=== PATIENT | male | born 1935 | race American Indian/Alaskan Native ===

== ENCOUNTER 2019-06-03 21:18 | Inpatient (IN) | payer MEDICARE, OTHER ==
[~2019-06-03] VITALS: Ht 165.1 cm; Wt 68.0 kg
--- NOTE | 2019-06-03 21:34 | NUR ---
PT BIB [facility] FROM HOME. PT PLACED ON BED AND MONITOR PLACED. PER MEDIC, FAMILY NOTED INCREASED GENERALIZED WEAKNESS WITH SOB X 2 DAYS. MEDIC STATED PT HAD RECENT HX OF PNA WITH HOSPITALIZATION. PT NOTED WITH LABORED BREATHING WITH SHAINA WHEEZING. PT ON 10L O2 BY MASK BY [facility] WITH O2 SAT AT 100%. PER MEDIC, UPON ARRIVAL TO SCENE PT'S O2 SAT WAS IN HIGH 80'S ON RA. PT ABLE TO SPEAK SLOWLY WITH SHORT SENTENCES. PT NOTED WITH TRACE EDEMA TO SHAINA FEET. FAMILY AT BEDSIDE.
[2019-06-03 22:17] LABS: RED CELL DISTRIBUTION WIDTH 12.8 % (11.5-14.5)
[2019-06-03 22:18] LABS: BASOPHIL % 0 % (0-2); PLATELET COUNT 97 x10^3mcL (130-400)
--- NOTE | 2019-06-03 22:35 | NUR ---
PT NOTED TO BE MORE AGITATED WITH ELEVATED BLOOD PRESSURE. PT REASSURED BY SON AT BEDSIDE, REPOSITIONED FOR COMFORT AND PLACED ON BIPAP PER DR KENNEDY.
[2019-06-03 22:51] LABS: CALCIUM 8.5 mg/dL (8.5-10.1); CARBON DIOXIDE 27.6 mmol/L (21-32); CHLORIDE SERUM 96 mmol/L (98-107); GLUCOSE SERUM 225 mg/dL (74-106); SODIUM SERUM 133 mmol/L (136-145)
[2019-06-03 22:55] LABS: ALKALINE PHOSPHATASE 85 U/L (46-116); ALT/SGPT 32 U/L (16-63); AST/SGOT 25 U/L (15-37); BILIRUBIN TOTAL 0.8 mg/dL (0.20-1.00); TOTAL PROTEIN, SERUM 7.3 g/dL (6.4-8.2)
[2019-06-03 23:00] LABS: ALBUMIN 2.7 g/dL (3.4-5.0)
--- NOTE | 2019-06-03 23:20 | NUR ---
F/C PLACED PER DR KENNEDY DUE TO PT INCONTINENCE AND THAT PT GIVEN IV LASIX.
[2019-06-03 23:52] LABS: UA SPECIFIC GRAVITY 1.025 (1.005-1.035); microscopic required? YES; urine erythrocyte 2+ (NEGATIVE)
[2019-06-04] VITALS (15 sets, daily range): BP systolic 95–115; BP diastolic 58–89
--- NOTE | 2019-06-04 00:38 | NUR ---
REPORT GIVEN TO JENIFER GA.
--- NOTE | 2019-06-04 00:38 | NUR ---
RECEIVED REPORT FROM CHARU GA FROM ED. AWAITING PT TRANSFER TO ICU.
--- NOTE | 2019-06-04 01:00 | NUR ---
PT BROUGHT INTO ICU VIA GURNEY, TRANSFERED TO ICU BED AND HOOKED UP TO HEATING AND COOLING TECHNICIAN AND CONTINUOUS PULSE OX. VS ON ADMISSION: T98.5, HR 89, B/P 111/58(75), RR 34, O2SAT 97%. PT IS AAOX4, HX OF DEMENTIA. PT ABLE TO MAKE NEEDS KNOWN AND FOLLOW COMMANDS. PUPILS 2MM BRISK. PT IS TACHYPNEIC AND ON BIPAP WITH SETTING OF FIO2 100%, IPAP 12, EPAP 6, R 12. LUNG SOUNDS HAVE CRACKLES TO UPPER LOBES AND ARE DIMINISHED TO BASES. PT STATES NO PAIN AT THIS TIME. CAP REFILL <3 SEC. PULSES WEAK TO BLE'S. NO EDEMA NOTED. GENERALIZED WEAKNESS. JOINTS INTACT. NO CONTRACTURES NOTED. PT IS NPO AT THIS TIME. ABDOMEN ROUND, NONTENDER. BS ACTIVE X 4. NO N/V NOTED. OSORIO CATHETER IN PLACE DRAINING VIA GRAVITY PALE YELLOW URINE. BRUISE NOTED TO R UPPER ARM. SKIN INTACT. BED IN LOW POSITION. CALL LIGHT WITHIN REACH. WILL CONTINUE TO MONITOR.
--- NOTE | 2019-06-04 04:55 | NUR ---
ACID PAINTER AT BEDSIDE FOR BLOOD DRAW.
--- NOTE | 2019-06-04 05:30 | NUR ---
PT'S O2SAT 100%. JOSELYN RT DECREASED FIO2 FROM 60% TO 50%.
[2019-06-04 05:32] LABS: BASOPHIL % 0.1 % (0-2); RED CELL DISTRIBUTION WIDTH 12.6 % (11.5-14.5)
[2019-06-04 05:33] LABS: PLATELET COUNT 91 x10^3mcL (130-400)
[2019-06-04 05:36] LABS: CALCIUM 8.1 mg/dL (8.5-10.1); CHLORIDE SERUM 97 mmol/L (98-107); CREATININE SERUM 1.2 mg/dL (0.7-1.3); GLUCOSE SERUM 200 mg/dL (74-106); MAGNESIUM 2.1 mg/dL (1.8-2.4); PHOSPHOROUS 3.8 mg/dL (2.5-4.9); POTASSIUM SERUM 3.4 mmol/L (3.5-5.1); SODIUM SERUM 136 mmol/L (136-145)
--- NOTE | 2019-06-04 05:50 | NUR ---
DR. SANTOS AT BEDSIDE ASSESSING PT. UPDATES PROVIDED.
--- NOTE | 2019-06-04 06:17 | NUR ---
CHEST X-RAY BEING DONE AT BEDSIDE.
--- NOTE | 2019-06-04 07:30 | NUR ---
RC'D PT AWAKE AND ON BIPAP. PT A/A/O/X1. PT RESPONDS TO VERBAL COMMANDS, UNABLE TO FOLLOW SIMPLE COMMANDS. PUPILS 3MM AND BRISK. NO FACIAL DROOP NOTED. NO EENT DRAINAGE NOTED. PT ON BIPAP WITH RESP E/L. LUNGS DIM TO BASES, CRACKLES NOTED. SPO2 99%. NSR ON CM, HR 91. S1S2 AUSC. NO S/S OF CP. PALP PULSES TO BUE/BLE, NO EDEMA NOTED. CAP REFILL <3. SKIN WARM TO TOUCH AND CONSISTENT WITH ETHNICITY. GENERALIZED WEAKNESS. PT REPOSITIONED Q2H AND PRN FOR PRESSURE REDUCTION. PT NPO. F/C WITH YELLOW URINE DRAINING TO GRAVITY, SECURED IN PLACE. NO PENILE/SCROTAL EDEMA NOTED. BED IN LOW POSITION. CALL LIGHT IN REACH. WILL CONT TO MONITOR
--- NOTE | 2019-06-04 09:30 | NUR ---
0800- DR DUNHAM AT BEDSIDE TO ASSESS PATIENT. DR DUNHAM SPOKE WITH PATIENT'S DAUGHTER CHRISSY VIA TELEPHONED AND INFORMED HER PATIENT IN NEED OF INTUBATION. DAUGHTER IN AGREEMENT WITH PLAN. 0810- DR DUNHAM, JAYLIN DORAN, KAREN RN, MYSELF AND ISA RN AT BEDSIDE FOR INTUBATION. 0812- PATIENT ADMINISTERED 20 MG ETOMIDATE IVP 0813- PATIENT ADMINISTERED 40 MG SUCC'S IVP 0814- PATIENT INTUBATED WITH #8 ETT AT 24 LL. PATIENT PLACED ON VENT SETTINGS AC MODE R 14, VT 400, PEEP 5, FIO2 100%. 0830- KAREN RN INSERTED #16F OGT. PLACEMENT VERIFIED VIA AIR BOLUS OVER GASTRIC REGION. 0830- PER DR DUNHAM VERBAL ORDER, BOLUS WITH 250 ML NS, PATIENT NOW REST 0834- PER DR DUNHAM VERBAL ORDER, START PATIENT ON PROPOFOL FOR SEDATION PATIENT ATTEMPTING TO PULL ON TUBING AND LINES. RESTRAINTS APPLIED PER DR DUNHAM ORDER. PROPOFOL INITATED AT 5 MCG/KG/MIN. 0845- XRAY AT BEDSIDE TO CONFIRM PLACEMENT OF ETT AND OGT 0855- PATIENT STARTED ON FENTANYL AT 0.5 MG/KG/HR AND VERSED AT 0.5 MG/HR FOR SEDATION. PROPOFOL TITRATED OFF. 0900- PATIENT'S DAUGHTER CHRISSY AT BEDSIDE. PATIENT UPDATE PROVIDED BY NURSING. DAUGHTER EXPRESSED THAT SHE "DOES NOT WANT HIM TO SUFFER" AND PROPOSED AT DNR STATUS. WILL ENDORSE TO DR SANTOS. 09- SPOKE WITH DR DUNHAM AND REPORTED ABG S/P INTUBATION. PER DR DUNHAM, CHANGE RATE TO 16 AND DECREASE FIO2 TO 50%. ENDORSED TO JAYLIN DORAN.
--- NOTE | 2019-06-04 10:10 | NUR ---
RT PRESENT AT BEDSIDE. RATE INCREASED FROM 14 TO 16 AT THIS TIME PER DR DUNHAM ORDER. WILL CONT TO MONITOR
--- NOTE | 2019-06-04 10:30 | NUR ---
DR COOK AND RESIDENTS ROUNDING AT THIS TIME. PATIENT UPDATES PROVIDED TO PATIENT'S DAUGHTER CHRISSY BEDSIDE. CODE STATUS DISCUSSED WITH CHRISSY AND SHE HAS OPTED TO MAKE PATIENT A MODIFIED CODE WITH PRESSORS AND INTUBATION/REINTUBATION ONLY. POC DISCUSSED AND IMAGING REVIEW WITH CHRISSY BY DR COOK. ALL QUESTIONS AND CONCERNS ADDRESSED.
--- NOTE | 2019-06-04 11:30 | NUR ---
CHARU FRENCH BINDING FOLDER AT BEDSIDE FOR CARDIAC ECHO.
--- NOTE | 2019-06-04 12:43 | NUR ---
RT PRESENT AT BEDSIDE
--- NOTE | 2019-06-04 13:05 | NUR ---
JAYLIN DORAN AT BEDSIDE AND TITRATED FIO2 ON VENT FROM 60 TO 50%.
--- NOTE | 2019-06-04 13:17 | NUR ---
SPOKE WITH DR DUNHAM VIA TELEPHONE AND PROVIDED MOST RECENT PATIENT UPDATE. OKAY YO GIVE PATIENT LASIX AT THIS TIME. WILL CARRY OUT ORDER.
--- NOTE | 2019-06-04 15:25 | NUR ---
DR HODGES TELEPHONED PATIENT'S DAUGHTER CHRISSY REGARDING POC. CHRISSY DID NOT ANSWER TELEPHONE CALL. DR HODGES LEFT MESSAGE.
--- NOTE | 2019-06-04 15:55 | NUR ---
SPOKE WITH PATIENT'S YIUMDIOD-JC-XPG WALLY CRAMER AND INFORMED HER THAT DR HODGES ATTEMPTED TO CONTACT PATIENT'S DAUGHTER REGARDING POC AND SHE WILL HAVE TO RECEIVE UPDATE FROM DAUGHTER CHRISSY. TELEPHONE NUMBER FOR WALLY CRAMER .
--- NOTE | 2019-06-04 17:20 | NUR ---
DR DUNHAM SPEAKING PATIENT'S DAUGHTER ON UNIT CHRISSY AND HER BROTHER VIA CONFERENCE CALL. POC DISCUSSED WITH ALL QUESTIONS AND CONCERNS ADDRESSED. DR DUNHAM SPOKE IN DEPTH WITH FAMILY REGARDING PATIENT'S WISHES. FAMILY TO DECIDE AMONGST THEMSELVES HOW TO PROCEED WITH CARE.
--- NOTE | 2019-06-04 17:30 | NUR ---
PT CLEANED AND REPOSITIONED AT THIST TIME. PROVIDED ORAL AND OSORIO CARE. PT MADE COMFORTABLE. WILL CONT TO MONITOR
--- NOTE | 2019-06-04 17:47 | NUR ---
RT PRESENT AT BEDSIDE. FIO2 TITRATED FROM 50% TO 40% AT THIS TIME. WILL CONT TO MONITOR
--- NOTE | 2019-06-04 18:11 | NUR ---
DR DUNHAM PRESENT AT BEDSIDE DISCUSSING POC WITH DAUGHTER. UPDATED ON PTS CURRENT STATUS. ALL QUESTIONS AND CONCERNS ADDRESSED.
--- NOTE | 2019-06-04 19:07 | NUR ---
RECEIVED REPORT FROM KAREN GA. WILL RESUME CARE.
--- NOTE | 2019-06-04 21:20 | NUR ---
RECEIVED PT INTUBATED AND SEDATED ON FENTANYL AT 1MCG/KG/HR AND VERSED AT 2MG/HR. PT IS UNABLE TO FOLLOW COMMANDS. RESPONSIVE TO PAINFUL STIMULI. 8.0 ETT AT 24LL INTACT AND SECURED. OGT IN PLACE AND SECURED TO ETT. ON VENT VCV-AC MODE WITH SETTINGS OF VT 400, FIO2 40%, R 16, PEEP 5. LUNG SOUNDS HAVE CRACKLES BILATERALLY. BREATHING E/U. NO S/SX OF PAIN AT THIS TIME. CAP REFILL <3 SEC. NO EDEMA NOTED. SKIN WARM, DRY. PULSES PALPABLE. ABDOMEN ROUND, NONTENDER. BS ACTIVE X 4. NO BM AT THIS TIME. OSORIO CATHETER IN PLACE DRAINING VIA GRAVITY PALE YELLOW URINE. SKIN INTACT. R UPPER ARM ECCHYMOSIS. BILATERAL SOFT WRIST RESTRAINTS IN PLACE FOR PT'S SAFETY. BED IN LOW POSITION. WILL CONTINUE TO MONITOR.
--- NOTE | 2019-06-04 22:10 | NUR ---
INITIATED OGT CONTINUOUS FEEDING OF GLUCERNA 1.2 AT 10CC/HR AND FWF OF 50 Q 6 HRS. PLACEMENT CHECKED BEFORE INITIATION.
[2019-06-05] VITALS (17 sets, daily range): BP systolic 91–108; BP diastolic 53–66
--- NOTE | 2019-06-05 03:53 | NUR ---
RT DEGROOT AT BEDSIDE ASSESSING PT AND GIVING BREATHING TREATMENT. PT TOLERATING WELL.
--- NOTE | 2019-06-05 04:39 | NUR ---
GROUND CREW SUPERVISOR AT BEDSIDE FOR BLOOD DRAW.
[2019-06-05 05:12] LABS: BASOPHIL % 0.2 % (0-2); RED CELL DISTRIBUTION WIDTH 13.1 % (11.5-14.5)
[2019-06-05 05:23] LABS: PLATELET COUNT 80 x10^3mcL (130-400)
[2019-06-05 05:47] LABS: CALCIUM 8.4 mg/dL (8.5-10.1); CARBON DIOXIDE 24.7 mmol/L (21-32); CHLORIDE SERUM 97 mmol/L (98-107); CREATININE SERUM 1.1 mg/dL (0.7-1.3); GLUCOSE SERUM 246 mg/dL (74-106); MAGNESIUM 2.3 mg/dL (1.8-2.4); PHOSPHOROUS 2.6 mg/dL (2.5-4.9); POTASSIUM SERUM 3.4 mmol/L (3.5-5.1); SODIUM SERUM 134 mmol/L (136-145)
--- NOTE | 2019-06-05 06:05 | NUR ---
DR. SANTOS AT BEDSIDE ASSESSING PT. UPDATES PROVIDED. MADE AWARE OF K+ 3.4.
--- NOTE | 2019-06-05 07:00 | NUR ---
RECEIVED PT INTUBATED AND SEDATED ON FENT @ 1 MCG/KG/HR AND VERSED @ 1MG/HR. RSS = 5. OBTUNDED. GAG REFLEX PRESENT. PUPILS 1MM IN SIZE AND SLUGGISH IN RESPONSE TO LIGHT B/E. UNABLE TO FOLLOW COMMANDS OR MAKE NEEDS KNOWN. 8.0 ETT @ 24 LL. OGT INTACT AND SECURED. TRACHEA MIDLINE. ETT TO VENT: VCV/AC MODE = 5 PEEP, 16 RATE, 400 VT, 40% FIO2. BREATHING E/U. SYMM CHEST WALL EXPANSION. CLEAR LUNG SOUNDS TO BUL, DIM TO BLL. NO S/S OF RESP DISTRESS AT THIS TIME. NSR ON IMPORT/EXPORT FREIGHT FORWARDER. S1/S2 HEART SOUNDS AUDIBLE. LEVOPHED INFUSING @ 2MCG/MIN. MOD PALPABLE PULSES X4. CAP REFILL <3 SEC. NO EDEMA. SKIN WARM/DRY TO TOUCH, COLOR CONSISTENT WTIH ETHNICITY. PIV TO R HAND, L HAND, AND L FA INTACT, PORTS PATENT, DRESSINGS CDI. ABD IS SOFT, ROUND, SYMMETRICAL, NONTENDER. ACTIVE BOWEL SOUNDS X4. F/C INTACT AND DRAINING VIA GRAVITY. URINE IS YELLOW IN COLOR WITH FAIR OUTPUT. NO PENILE DISCHARGE OR SCROTAL EDEMA NOTED. JOINTS INTACT. NO CONTRACTURES. GLUCERNA TUBE FEEDINGS @ 20ML/HR WITH 50CC FWF Q6H. TOLERATING WELL. GRV = 0. NO S/S OF ASPIRATION. X3 SIDE RAILS UP, BED IN LOWEST POSITION, HOB 30 DEGREES.
--- NOTE | 2019-06-05 07:00 | NUR ---
RECEIVED REPORT FROM JENIFER GA. ALL QUESTIONS ANSWERED AND ADDRESSED. ASSUMING CARE AT THIS TIME
--- NOTE | 2019-06-05 07:02 | NUR ---
GAVE REPORT TO SREEKANTH GA. ALL QUESTIONS AND CONCERNS ADDRESSED.
--- NOTE | 2019-06-05 08:00 | NUR ---
PER DR. DUNHAM, INCREASE FENT TO 1.5 MCG/KG/HR TO KEEP PT COMFORTABLE
--- NOTE | 2019-06-05 09:46 | NUR ---
MAP OF 71. LEVOPHED TITRATED OFF AT THIS TIME.
--- NOTE | 2019-06-05 10:16 | NUR ---
MAP OF 61. LEVOPHED TITRATED BACK ON TO 1MCG/MIN.
--- NOTE | 2019-06-05 11:05 | NUR ---
MAP OF 59. LEVO TITRATED TO 2 MCG/MIN
--- NOTE | 2019-06-05 11:05 | NUR ---
GRV = 5. GLUCERNA ADVANCED TO GOAL RATE OF 30ML/HR.
--- NOTE | 2019-06-05 12:08 | NUR ---
RT AT BEDSIDE. FIO2 TO 30%.
--- NOTE | 2019-06-05 15:25 | NUR ---
[facility] CALLED AT THIS TIME. INFORMATION GIVEN ON PT. [facility] SANTOS STATED THAT THEY ARE PROCESSING THE PAPERWORK, TRYING TO GET AN ADMITTING PHYSICIAN, AND BED FOR THE PT. AWAITING FOR CALL BACK FROM [facility] AT THIS TIME.
--- NOTE | 2019-06-05 19:01 | NUR ---
RECIEVED REPORT FROM HARMEET STACK. NURSING UPDATES. POC DISCUSSES. SEE SHIFT ASSESSMENT FOR ASSESSMENT.
--- NOTE | 2019-06-05 19:21 | NUR ---
SWING SAW OPERATOR INFORMATION FROM [facility] AT THIS TIME. STATED THAT PT WILL BE GOING TO [facility], ICU ROOM 226, FOR REPORT. STATED THAT THE [facility] NURSE WON'T BE IN UNTIL 9PM. WILL CALL BACK IN AN HOUR FOR UPDATES ON PT.
--- NOTE | 2019-06-05 20:00 | NUR ---
TITRATED LEVO FROM 2MG/HR TO 1MG/HR. PT TOLERATING POORLY BP SLOWING DROPPING. WILL CONT TO MONITOR.
--- NOTE | 2019-06-05 21:00 | NUR ---
TITRATED LEVO FROM 1MG/HR TO 2MG/HR. PER TOLERATING POORLY FROM PREVIOUS TITRATION. BP WNL. WILL CONT TO MONITOR.
--- NOTE | 2019-06-05 21:47 | NUR ---
NOTIFIED PER [facility] 1 HR AWAY. AWAITING PT PICKUP.
--- NOTE | 2019-06-05 23:00 | NUR ---
AWAITING TRANSFER TEAM. NO ACUTE CHANGES.
--- NOTE | 2019-06-05 23:15 | NUR ---
REPORT GIVEN TO HARMEET URIBE @ [facility] ICU BED 226. NURSING UPDATES. POC DISCUSSED. ALL CONCERNS ADDRESSED. AWAITING TRANSPORT.
--- NOTE | 2019-06-05 23:20 | NUR ---
[facility] TEAM HERE TO TRANSFER PT TO [place]. REPORT GIVEN TO HARMEET NERI. NURSING UPDATES. POC DISCUSSED. NO ACUTE CHANGES FROM 1999 ASSESSMENT. VS STABLE HR 82, O2 98%, BP 107/61(74). T 98.4. RR 15. BS 243 COVER W/ HUM REG 6U. PAIN SCALE 0/10. PT TRANSFER W/ NO ACUTE DISTRESS.
[2019-06-12 13:20] VITALS: Ht 165.1 cm; Wt 68.0 kg
== END 2019-06-06 00:10 | disposition short-term general hospital (02) | DRG 871 ==
LOC: ED 21:18 → IC 23:49
PROVIDERS: Emergency Medicine; ADMIT Internal Medicine
PROC: 0BH17EZ Insertion of Endotracheal Airway into Trachea, Via Natural or Artificial Opening (ICD-10-PCS; principal; 2019-06-04)
PROC: 5A1945Z Respiratory Ventilation, 24-96 Consecutive Hours (ICD-10-PCS; 2019-06-04)
DX: A41.9 Sepsis, unspecified organism (principal); J96.01 Acute respiratory failure with hypoxia; J18.9 Pneumonia, unspecified organism; E43 Unspecified severe protein-calorie malnutrition; E87.1 Hypo-osmolality and hyponatremia; E11.9 Type 2 diabetes mellitus without complications; I50.9 Heart failure, unspecified; I34.0 Nonrheumatic mitral (valve) insufficiency; D69.59 Other secondary thrombocytopenia; D64.9 Anemia, unspecified; F03.90 Unspecified dementia, unspecified severity, without behavioral disturbance, psychotic disturbance, mood disturbance, and anxiety; Z68.24 Body mass index [BMI] 24.0-24.9, adult; Z95.2 Presence of prosthetic heart valve; Z79.84 Long term (current) use of oral hypoglycemic drugs; Z66 Do not resuscitate
CPT/HCPCS: 31500; 82962; 83880; A4628; G0378; J0330; J1815; J1940; J1956; J2250; J2543; J2704; J2920; J3010; J3370; J3480; J3490; J7030; J7040; J7050; J7620; Q0092